=== PATIENT | male | born 1980 | race Two or more races ===

== ENCOUNTER 2022-03-15 00:21 | Emergency (ER) | payer SELFPAY ==
[~2022-03-15] VITALS: Ht 162.6 cm; Wt 69.9 kg
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
--- NOTE | 2022-03-15 00:32 | NUR ---
[employer] AT PT'S BEDSIDE
[2022-03-15] MEDS ORDERED: IBUPROFEN 400 MG TABLET PO ONE (01:00)
[2022-03-15] MEDS ORDERED: IBUPROFEN 400 MG TABLET ONE (01:02)
--- NOTE | 2022-03-15 01:03 | NUR ---
PT BEING TRANSPORTED TO CT VIA [facility]
--- NOTE | 2022-03-15 01:22 | NUR ---
PT RETURNED TO ER BED [address]
--- NOTE | 2022-03-15 03:00 | NUR ---
Patient discharged to home in stable condition. Written and verbal after care instructions given. Patient verbalizes understanding of instruction.
[2022-03-15 03:22] VITALS: BP 143/52
== END 2022-03-15 03:07 | disposition home or self-care (01) ==
LOC: ER 00:32
DX: S70.01XA Contusion of right hip, initial encounter (principal); M54.50 Low back pain, unspecified; V09.9XXA Pedestrian injured in unspecified transport accident, initial encounter; Y93.89 Activity, other specified; Y92.410 Unspecified street and highway as the place of occurrence of the external cause; Y99.8 Other external cause status
CPT/HCPCS: 72131-TC; 73502